=== PATIENT | male | born 1980 | race Two or more races ===

== ENCOUNTER 2020-05-26 20:16 | Emergency (ER) | payer SELFPAY ==
[~2020-05-26] VITALS: Ht 170.2 cm; Wt 127.0 kg
[2020-05-26 20:45] VITALS: BP 122/74
== END 2020-05-26 21:23 | disposition left against medical advice (07) ==
LOC: ER 20:16
DX: R06.02 Shortness of breath (principal); Z53.21 Procedure and treatment not carried out due to patient leaving prior to being seen by health care provider